=== PATIENT | female | born 1950 | race Caucasian/White ===

== ENCOUNTER → 2016-11-05 | Outpatient (CLI) | payer OTHER | LOC: BHFA 13:30 | PROVIDERS: ATTEND Internal Medicine Interventional Cardiology | DX: E78.00 Pure hypercholesterolemia, unspecified (principal); R94.31 Abnormal electrocardiogram [ECG] [EKG]; Z82.49 Family history of ischemic heart disease and other diseases of the circulatory system ==

== ENCOUNTER → 2016-11-19 | Outpatient (CLI) | payer OTHER | LOC: BMCIMAGING 12:42 | PROVIDERS: ATTEND Internal Medicine | DX: Z12.31 Encounter for screening mammogram for malignant neoplasm of breast (principal) | CPT/HCPCS: G0202 ==

== ENCOUNTER → 2016-12-29 | Outpatient (CLI) | payer OTHER | LOC: FIMAGING 12:20 | PROVIDERS: ATTEND Physician Assistant | DX: M75.91 Shoulder lesion, unspecified, right shoulder (principal); M19.011 Primary osteoarthritis, right shoulder; S43.431A Superior glenoid labrum lesion of right shoulder, initial encounter; M25.411 Effusion, right shoulder ==

== ENCOUNTER → 2017-01-11 | Outpatient (CLI) | payer OTHER ==
[~2017-01-11] MED LIST: IOPAMIDOL (ISOVUE 370) 100 ML BTL IV ONE
== END ==
LOC: FIMAGING 09:40
PROVIDERS: ATTEND Internal Medicine Interventional Cardiology
DX: I71.2 Thoracic aortic aneurysm, without rupture (principal); Z82.49 Family history of ischemic heart disease and other diseases of the circulatory system
CPT/HCPCS: 71275; Q9967

== ENCOUNTER 2017-02-28 06:45 | Inpatient (IN) | payer OTHER ==
[~2017-02-28 06:45] MED LIST changes: -IOPAMIDOL (ISOVUE 370) 100 ML BTL IV ONE; +LIDOCAINE 1% 5 ML, BUPIVACAINE 0.5% 5 ML, morphINE PF 5 MG in SYRINGE 0 ML IU ONE
--- NOTE | 2017-02-28 06:50 | PDHPUP ---
History & Physical Update H&P update statement: This history and physical update is based on an assessment of the patient which was completed after admission or registration (within 24 hours), but prior to the surgery/procedure.
--- NOTE | 2017-02-28 06:51 | PDIAF ---
- Diagnosis Diagnosis: right shoulder arthritis Code Status: Full Code - Medication Management Discharge Medications: Medications to Continue on Transfer Cholecalciferol Vit D3 [Vitamin D3 2000 units tab (OTC)] 4,000 units PO DAILY [Last Taken Unknown] Cyclobenzaprine [Flexeril 10 MG (*)] 10 mg PO TID PRN 02/02/17 [Last Taken Unknown] Fluoxetine HCl [Prozac 40 mg] 40 mg PO DAILY 02/02/17 [Last Taken Unknown] Herbals/Supplements -Info Only 1 ea PO DAILY 02/02/17 [Last Taken Unknown] Ibuprofen [Motrin (*)] 400 - 600 mg PO DAILY PRN 02/02/17 [Last Taken Unknown] Metoprolol Succinate Xr [Toprol Xl 25 mg (*)] 25 mg PO DAILY 02/02/17 [Last Taken Unknown] Multivitamins [Multivitamin (*)] 1 each PO DAILY 02/02/17 [Last Taken Unknown] [place]-3 Fatty Acids [Fish Oil 1000 mg (*)] 1,000 mg PO DAILY 02/02/17 [Last Taken Unknown] Atorvastatin Calcium [Lipitor 20 mg (*)] 20 mg PO DAILY18 02/21/17 [Last Taken Unknown] Discharge Medications: Refer to the Discharge Home Medication list for PRN reason. - Orders Services needed: Physical Therapy Activity/Weight Bearing Restrictions: daily dressing changes. may shower without bandage. no soaking or immersion. sling. pendulum rom. seek attn for increasing leg pain, swelling, drainage, other focal complaint - Follow Up Care Current Providers and Referrals: Sanam Houser MD [Primary Care Provider] -
[2017-02-28] MEDS ORDERED: ceFAZolin 2 GM/DEXTROSE 100 ML IV ONE (07:05)
[2017-02-28] MEDS ORDERED: ACETAMINOPHEN 500 MG TAB PO ONE (07:05)
[2017-02-28] MEDS ORDERED: LR 1,000 ML IV SCH ×2 (07:05→09:30)
[2017-02-28] MEDS ORDERED: LIDOCAINE 1% 2 ML INJ ID PRN (07:06)
[2017-02-28] MEDS ORDERED: LR 1,000 ML IV ONE (07:06)
[2017-02-28] MEDS ORDERED: ceFAZolin 2 GM/SWFI 2 GM/20 ML SYR IVP ONE (07:30)
--- NOTE | 2017-02-28 08:20 | PDANEPAE ---
ANE Past Medical History - Cardiovascular History Hx Hypertension: No Hx Arrhythmias: No Hx Chest Pain: No Hx Coronary Artery / Peripheral Vascular Disease: No Hx CHF / Valvular Disease: No Hx Palpitations: No Cardiovascular History Comment: HYPERLIPIDEMIA. FAMILY HX THORACIC AORTIC ANEURYSM. ANGIOGRAM 01-11-17 - Pulmonary History Hx COPD: No Hx Asthma/Reactive Airway Disease: No Hx Recent Upper Respiratory Infection: No Hx Oxygen in Use at Home: No Hx Sleep Apnea: No Sleep Apnea Screening Result - Last Documented: Negative - Neurologic History Hx Cerebrovascular Accident: No Hx Seizures: No Hx Dementia: No - Endocrine History Hx Diabetes: No - Renal History Hx Renal Disorders: No - Liver History Hx Hepatic Disorders: No - Neurological & Psychiatric Hx Hx Neurological and Psychiatric Disorders: Yes Neurological / Psychiatric History Comment: DEPRESSION - Cancer History Hx Cancer: No - Congenital Disorder History Hx Congenital Disorders: No - GI History Hx Gastrointestinal Disorders: No - Other Health History Other Health History: OSTEOPENIA - Chronic Pain History Chronic Pain: Yes (R SHOULDER) - Surgical History Prior Surgeries: TONELLECTOMY. D&C. 2008 RHINOPLASTY. 2009 R KNEE SCOPE ANE Review of Systems Review of Systems: - Exercise capacity METS (RN): 4 METS ANE Patient History - Allergies Allergies/Adverse Reactions: indomethacin Allergy (Verified 02/02/17 13:37) headache - Home Medications Home Medications: Cholecalciferol Vit D3 [Vitamin D3 2000 units tab (OTC)] 4,000 units PO DAILY [Last Taken 02/18/17] Cyclobenzaprine [Flexeril 10 MG (*)] 10 mg PO TID PRN 02/02/17 [Last Taken 01/24] Fluoxetine HCl [Prozac 40 mg] 40 mg PO DAILY 02/02/17 [Last Taken 02/27/17 11:00 ] Herbals/Supplements -Info Only 1 ea PO DAILY 02/02/17 [Last Taken 02/18/17] Ibuprofen [Motrin (*)] 400 - 600 mg PO DAILY PRN 02/02/17 [Last Taken 02/18/17] Metoprolol Succinate Xr [Toprol Xl 25 mg (*)] 25 mg PO DAILY 02/02/17 [Last Taken 02/27/17 19:00] Multivitamins [Multivitamin (*)] 1 each PO DAILY 02/02/17 [Last Taken 02/18/17] [place]-3 Fatty Acids [Fish Oil 1000 mg (*)] 1,000 mg PO DAILY 02/02/17 [Last Taken 02/18/17] Atorvastatin Calcium [Lipitor 20 mg (*)] 20 mg PO DAILY18 02/21/17 [Last Taken 02/21/17] - NPO status NPO Since - Liquids (Date): 02/27/17 NPO Since - Liquids (Time): 20:00 NPO Since - Solids (Date): 02/27/17 NPO Since - Solids (Time): 16:00 - Smoking Hx Smoking Status: Never smoked - Family Anes Hx Family Hx Anesthesia Complications: NEG ANE Labs/Vital Signs - Vital Signs Blood Pressure: 120/78 Heart Rate: 70 Respiratory Rate: 16 O2 Sat (%): 95 Height: 166.37 cm Weight: 81.647 kg ANE Physical Exam - Airway Mallampati Score: Class 2 - ASA Status ASA Status: II ANE Anesthesia Plan Anesthesia Plan: GA w LMA Regional Anesthesia: interscalene BP NB
[2017-02-28] MEDS ORDERED: MIDAZOLAM 2 MG/2 ML VIAL ONE (08:25)
[2017-02-28] MEDS ORDERED: LIDOCAINE 2% JELLY 5 ML TUBE ONE (08:26)
[2017-02-28] MEDS ORDERED: ROPIVACAINE HCL 150 MG/30 ML INJ ONE (08:26)
[2017-02-28] MEDS ORDERED: METOCLOPRAMIDE 10 MG/2 ML VIAL ONE (08:26)
[2017-02-28] MEDS ORDERED: PROPOFOL 200 MG/20 ML VIAL ONE (08:26)
[2017-02-28] MEDS ORDERED: LIDOCAINE 2% 5 ML SDV ONE (08:26)
[2017-02-28] MEDS ORDERED: fentaNYL 100 MCG/2 ML INJ ONE ×3 (08:26→11:18)
[2017-02-28] MEDS ORDERED: ONDANSETRON 4 MG/2 ML VIAL ONE (08:26)
[2017-02-28] MEDS ORDERED: PROMETHAZINE HCL 25 MG SUPPR PR PRN (09:29)
[2017-02-28] MEDS ORDERED: BISACODYL 10 MG SUPP PR PRN (09:29)
[2017-02-28] MEDS ORDERED: DIAZEPAM 5 MG TAB PO PRN (09:29)
[2017-02-28] MEDS ORDERED: TEMAZEPAM 15 MG CAP PO PRN (09:29)
[2017-02-28] MEDS ORDERED: METOCLOPRAMIDE 10 MG/2 ML VIAL IVP PRN (09:29)
[2017-02-28] MEDS ORDERED: MAGNESIUM HYDROXIDE 30 ML UDCUP PO PRN (09:29)
[2017-02-28] MEDS ORDERED: ONDANSETRON 4 MG/2 ML VIAL IVP PRN (09:29)
[2017-02-28] MEDS ORDERED: DIPHENOXYLATE/ATROPINE LOMOTIL 1 TAB PO PRN (09:29)
[2017-02-28] MEDS ORDERED: POLYETHYLENE GLYCOL 3350 17 GM PKT PO PRN (09:29)
[2017-02-28] MEDS ORDERED: diphenhydrAMINE 25 MG CAP PO PRN (09:29)
[2017-02-28] MEDS ORDERED: PROMETHAZINE HCL 25 MG/ML INJ IVP PRN ×2 (09:29→10:57)
[2017-02-28] MEDS ORDERED: ONDANSETRON DISINTEGRATING 4 MG TAB PO PRN (09:29)
[2017-02-28] MEDS ORDERED: LACTULOSE 20 GM/30 ML UDCUP PO PRN (09:29)
[2017-02-28] MEDS ORDERED: BUPIVACAINE/EPI 0.5% 30 ML SDV ONE (09:41)
[2017-02-28] MEDS ORDERED: LIDOCAINE/BUP/DURAMORPH 15 ML SYR IF ONE (10:14)
[2017-02-28] MEDS ORDERED: POLYMYXIN B SULFATE 500,000 UNIT/10 ML SYR IRR ONE (10:34)
[2017-02-28] MEDS ORDERED: THROMBIN (BOVINE) 5,000 UNIT VIAL TP ONE (10:34)
[2017-02-28] MEDS ORDERED: BACITRACIN 50,000 UNITS/10 ML SYR IRR ONE (10:34)
[2017-02-28] MEDS ORDERED: CALCIUM CHLORIDE 1 GM/10 ML INJ ONE (10:34)
[2017-02-28] MEDS ORDERED: NALOXONE HCL 0.4 MG/ML INJ IVP PRN (10:57)
[2017-02-28] MEDS ORDERED: LR 500 ML IV PRN (10:57)
--- NOTE | 2017-02-28 11:02 | POSTANESTH ---
Post Anesthetic Evaluation Cardiovascular Status: Normal, Stable Respiratory Status: Normal, Stable Level of Consciousness/Mental Status: Can Participate in Eval Pain Control: Adequate, Prn Tx Ordered Nausea/Vomiting Control: Adequate, Prn Tx Ordered Complications Possibly Related to Anesthesia: None Noted
[2017-02-28] MEDS: fentaNYL 100 MCG/2 ML INJ IVP PRN ×2 (11:20→11:33)
[2017-02-28] MEDS: oxyCODONE IR 5 MG TAB PO PRN ×5 (12:20→20:44)
[2017-02-28] MEDS: ACETAMINOPHEN 325 MG TAB PO SCH ×3 (12:20→23:21)
[2017-02-28] MEDS ORDERED: ceFAZolin 2 GM/DEXTROSE 100 ML IV SCH (14:00)
--- NOTE | 2017-02-28 15:59 | ASMTCMCOM ---
CM Note CM Note Notes: 02/28/2017 Case Management Note Reviewed chart. No case management d/c needs identified d/t pt age, activity levels prior to admission and marital status. Waiting on PT and OT evals for d/c planning, anticipating home with family with follow up as directed. Case Management d/c poc: to be determined Case Management to follow. Date Signed: 02/28/2017 03:59 PM Electronically Signed By:Analilia Montanez RN
[2017-02-28] MEDS: ceFAZolin 2 GM in D5W 100 ML IV SCH (16:49)
[2017-02-28] MEDS: SENNOSIDES/DOCUSATE SODIUM TAB PO SCH (20:45)
[2017-02-28] MEDS: FAMOTIDINE 20 MG TAB PO SCH (20:45)
[2017-03-01] MEDS: ceFAZolin 2 GM in D5W 100 ML IV SCH ×2 (01:53→10:21)
[2017-03-01] MEDS: oxyCODONE IR 5 MG TAB PO PRN ×4 (01:58→11:46)
[2017-03-01] MEDS: ACETAMINOPHEN 325 MG TAB PO SCH ×2 (05:27→11:45)
[2017-03-01 05:38] LABS: HEMATOCRIT 34.3 % (38.0-47.0); HEMOGLOBIN 11.6 g/dL (12.6-16.3)
[2017-03-01 07:36] VITALS: RESP 16
[2017-03-01] MEDS: FLUoxetine 20 MG CAP PO SCH ×2 (08:16→09:13)
[2017-03-01] MEDS: CHOLECALCIFEROL VIT D3 2,000 UNITS TAB/CAP PO SCH ×2 (08:16→09:13)
[2017-03-01] MEDS: FAMOTIDINE 20 MG TAB PO SCH (08:17)
[2017-03-01] MEDS: SENNOSIDES/DOCUSATE SODIUM TAB PO SCH (08:19)
[2017-03-01] MEDS ORDERED: METOPROLOL SUCCINATE XR 25 MG TAB PO SCH (09:00)
[2017-03-01 11:15] VITALS: BP 121/71; PULSE 78; TEMP 98.6; O2SAT 94
--- NOTE | 2017-03-01 11:55 | GDS ---
[f rep st] DISCHARGE SUMMARY ADMIT DIAGNOSIS: Right shoulder arthritis. POSTOPERATIVE DIAGNOSIS: Right shoulder arthritis. PROCEDURE: Right total shoulder arthroplasty. OPERATIVE INDICATIONS: The patient is a 66-year-old woman with end-stage arthritis to her right shou lder. Clinical and radiographic features are consistent with this. She has failed all attempts at c onservative management. I have recommended total shoulder replacement. HOSPITAL COURSE: The patient was admitted to the hospital floor after uncomplicated total shoulder a rthroplasty. She tolerated the procedure well. Postoperative course was uneventful. At the time of discharge, she is tolerating an oral diet. Pain is well controlled on oral medicines. She is voiding without difficulty. Her dressing is clean, dry, and intact. She has intact axillar y, radial, ulnar, and median nerve sensation. X-rays are stable with anatomic alignment. She has no calf swelling or tenderness. Negative Homans bilaterally. DISCHARGE ACTIVITY: She has pendulum range of motion. Daily dressing changes. May shower without t he bandage. No soaking or immersion. FOLLOWUP: In 2 weeks. Seek attention for increasing redness, swelling, drainage. DISCHARGE MEDICATIONS: Oxycodone 5 mg, 1-2 every 4 hours p.r.n. pain. Copy requested to: Pcp /[id number]/MODL
--- NOTE | 2017-03-01 14:52 | ASDISCHSUM ---
Discharge Information Plan Status:Home with No Needs Medically Cleared to Leave: Discharge Date:03/01/2017 01:36 PM CM D/C Disposition:Home, Routine, Self-Care ADT D/C Disposition:Home, Routine, Self-Care Projected Discharge Date:03/01/2017 01:36 PM Transportation at D/C:Family Discharge Delay Reason: Follow-Up Date:03/01/2017 01:36 PM Discharge Slot: Final Diagnosis: Placement Information Patient Contact Information Contact Name:MAHI Relationship: Address:[address] [place] [address] Work Phone: City:[place] Alternate Phone: [facility]/Zip Code:[place] [address] Email: Financial Information Financial Class: Primary Plan Desc:MEDICARE INPATIENT Primary Plan Number:[id number] Secondary Plan Desc:[employer] PPO [employer] Secondary Plan Number:[id number] Assessment Information [facility] CM Progress Note CM Note CM Note Notes: 02/28/2017 Case Management Note Reviewed chart. No case management d/c needs identified d/t pt age, activity levels prior to admission and marital status. Waiting on PT and OT evals for d/c planning, anticipating home with family with follow up as directed. Case Management d/c poc: to be determined Case Management to follow. Date Signed: 02/28/2017 03:59 PM Electronically Signed By:Analilia Montanez RN Intervention Information
[2017-03-01] MEDS ORDERED: ATORVASTATIN CALCIUM 20 MG TAB PO SCH (18:00)
--- NOTE | 2017-03-05 02:54 | GOP ---
[f rep st] OPERATIVE REPORT DATE OF OPERATION: 02/28/2017 SURGEON: Jaime Hall MD CLINICAL EDUCATION MANAGER: Sanjay Zaldivar, [employer]AT [employer]ER, ORDER PROCESSING SPECIALIST; salesperson surgical appliances was medical necessity for the entirety of t he case preoperative. PREOPERATIVE DIAGNOSIS: Right shoulder degenerative joint disease. POSTOPERATIVE DIAGNOSIS: Right shoulder degenerative joint disease. PROCEDURE PERFORMED: Right shoulder arthroplasty. FINDINGS: SPECIMENS: Pathology to humeral head. INDICATIONS: The patient is a 66-year-old woman who has end-stage arthritis to her right shoulder. She has mild rotator cuff pathology to the supraspinatus as well. Given the persistent nature of her symptoms and failure with conservative measures, I have recommended operative intervention with a to ella shoulder replacement. She understood the risks, benefits, alternatives, and wished to proceed. Written consent was signed and placed in patient's chart. DESCRIPTION OF PROCEDURE: The patient was identified in the preanesthesia area. The right shoulder clearly demarcated as the operative site with indelible marker. She was given 2 g of Ancef intraveno usly en route to the operative suite. In the OR, general endotracheal anesthesia was administered. An interscalene block placed for postoperative pain relief. The patient was positioned in the beach chair position. All bony prominences were well padded, including the use of a neurological head hold er. A standard anterior deltopectoral incision was made. This was carried sharply through the skin and s ubcutaneous tissue, the cephalic vein was identified retracted medially and a self-retaining retracto r placed deep to the conjoined and deltoid. The arm was externally rotated. The biceps tendon was u sed as an interval and the subscapularis elevated off the lesser tuberosity. The biceps tendon was g rossly frayed and retracted. No tenodesis was performed. The capsule and subscapularis were elevate d off the anterior aspect of the humeral head. Humeral head was delivered through the wound with use of retractors. A proximal cut made and the bony fragment withdrawn. Attention was turned to the st em. The proximal canal was opened. Serial broaching and reaming was carried out to a size 12 stem a nd ultimately a 52 x 18 mm concentric head was selected. This was placed across a trial 12 mm stem. The shoulder was taken through full range of motion, was stable and appropriate. The trial humeral components were withdrawn, attention turned to the glenoid. The retractors were placed. The glenoid labrum were sharply excised. A central guide pin was then placed. This was used to facilitate ream ing of the glenoid vault. A central guide was placed and 3 peripheral holes were placed for a 48 mm anchor PEG glenoid surface component. The anchor PEG glenoid was then placed, confirmed to be fully seated. Attention was returned to the proximal humerus. On the back table the appropriate head and stem combo were connected. This was then impacted across the proximal surface of the humerus to full bony apposition. Humerus was taken through full range of motion with no evidence of movement of the glenoid component. A 40% subluxation in anterior-posterior direction was achieved and full range of motion passively. The subscapularis was then repaired to the interval of the supraspinatus and this was repaired to a bony footprint on the distal humerus or the proximal humeral shaft. The shoulder was instilled with a joint cocktail of ropivacaine, morphine, Toradol, and epinephrine as well as chris telet-rich plasma. The subcutaneous tissue was closed using 2-0 Quill equivalent and a ranjeet were applied. Sterile dressings, Cryo Cuff, shoulder immobilizer was placed. The patient was awakened, e xtubated, taken to recovery in good, stable condition. TOTAL TOURNIQUET TIME: None. COMPLICATIONS: None. IMPLANTS: The DePuy global AP size 52 x 18 concentric head, size 12 stem, 48 mm anchor PEG glenoid. DISPOSITION: To the recovery room, then the floor. She will be passive range of motion for 6 weeks. Follow standard shoulder recovery. /[id number]/MODL
== END 2017-03-01 13:36 | disposition home or self-care (01) | DRG 483 ==
LOC: F3N 06:45
PROVIDERS: ADMIT Orthopaedic Surgery; ATTEND Orthopaedic Surgery
PROC: 0RRJ0JZ Replacement of Right Shoulder Joint with Synthetic Substitute, Open Approach (ICD-10-PCS; principal; 2017-02-28 09:30)
DX: M19.011 Primary osteoarthritis, right shoulder (principal); E78.5 Hyperlipidemia, unspecified; F32.9 Major depressive disorder, single episode, unspecified
CPT/HCPCS: 97161-GP; 97165-GO; 97535-GO; G8978-GP-CI; G8979-GP-CI; G8980-GP-CI; G8987-GO-CI; G8988-GO-CI; G8989-GO-CI; J0690; J2250; J2274; J2405; J2704; J2765; J2795; J3010

== ENCOUNTER → 2017-05-30 | Outpatient (CLI) | payer OTHER | LOC: BMCIMAGING 10:19 | PROVIDERS: ATTEND Orthopaedic Surgery | DX: Z47.1 Aftercare following joint replacement surgery (principal); Z96.611 Presence of right artificial shoulder joint ==

== ENCOUNTER → 2017-08-30 | Outpatient (CLI) | payer OTHER | LOC: BMCIMAGING 09:32 | PROVIDERS: ATTEND Orthopaedic Surgery | DX: Z47.1 Aftercare following joint replacement surgery (principal); Z96.611 Presence of right artificial shoulder joint ==

== ENCOUNTER → 2018-04-27 | Outpatient (CLI) | payer OTHER | LOC: BMCIMAGING 09:18 | PROVIDERS: ATTEND Nurse Practitioner Adult Health | DX: Z12.31 Encounter for screening mammogram for malignant neoplasm of breast (principal); Z13.820 Encounter for screening for osteoporosis; M85.89 Other specified disorders of bone density and structure, multiple sites; Z78.0 Asymptomatic menopausal state; Z87.81 Personal history of (healed) traumatic fracture ==